=== PATIENT | male | born 1985 | race Caucasian/White ===

== ENCOUNTER 2020-10-04 12:06 | Emergency (ER) | payer SELFPAY ==
[~2020-10-04] VITALS: Ht 190 cm; Wt 140.0 kg
[2020-10-04 12:15] VITALS: BP 135/75
--- NOTE | 2020-10-04 12:40 | NUR ---
PT REPORTS HE WENT TO URGENT CARE AND THEY CAME TO THE CAR AND ASSESSED HIM AND SENT HIM TO THE ER FOR A O2 SAT OF 95%.
--- NOTE | 2020-10-04 12:56 | ED Cough/URI ---
General Chief Complaint: Cough/Cold/Flu Symptoms Stated Complaint: COVID+ Nursing Triage Note: PT WAS SENT BY URGENT CARE FOR O2 SAT OF 95% AND COVID POSITIVE. Sepsis Screen: No Definite Risk History of Present Illness Date Seen by Provider: Oct 04, 2020 Time Seen by Provider: 12:25 Initial Comments Patient is a 35-year-old male COVID positive for earlier today with 4 days of body aches, nasal congestion rhinorrhea sore throat with fever of 103 last evening chest heaviness with dry nonproductive cough for the past 3 days. Patient states symptoms gradually worsened after going deer hunting 2 days ago. He states he was in freezing weather for at least 2 hours. Denies dizziness lightheadedness, nausea vomiting, abdominal pain. Reports fatigue. No other acute symptoms or complaints. No medications or therapies prior to ED arrival. No history of asthma or chronic lung disease. Timing/Duration: just prior to arrival Severity/Quality: mild Prior Episodes/Possible Cause: occasional episodes Modifying Factors: Improves With Coughing, Improves With Rest Associated Symptoms: chest pain/soreness, cough, fever/chills, headache, muscle aches, nasal congestion, sinus infection, sore throat Allergies and Home Medications Patient Home Medication List Home Medication List Reviewed: Yes Review of Systems Review of Systems Constitutional: see HPI EENTM: see HPI Respiratory: see HPI Cardiovascular: see HPI Gastrointestinal: see HPI Genitourinary: see HPI Musculoskeletal: see HPI Skin: see HPI Psychiatric/Neurological: See HPI Hematologic/Lymphatic: See HPI Immunological/Allergic: see HPI All Other Systems Reviewed Negative Unless Noted: Yes Past Isggnez-Uvgdwb-Nlwjup Hx Past Med/Social Hx: Reviewed Nursing Past Med/Soc Hx Patient Social History Alcohol Use: Denies Use Recreational Drug Use: No Smoking Status: Never a Smoker 2nd Hand Smoke Exposure: No Recent Foreign Travel: No Contact w/Someone Who Travel: No Recent Infectious Disease Expo: No Recent Hopitalizations: No Physical Abuse: No Sexual Abuse: No Mistreated: No Fear: No Seasonal Allergies Seasonal Allergies: No Past Medical History Surgeries: Yes (left knee repair) Orthopedic Respiratory: No Cardiac: No Neurological: No Genitourinary: No Gastrointestinal: No Musculoskeletal: No Endocrine: No HEENT: No Cancer: No Psychosocial: No Blood Disorders: No Physical Exam Vital Signs - First Documented 10/04/20 12:15 Temp 36.8 Pulse 91 Resp 18 B/P (MAP) 135/75 (95) Pulse Ox 95 O2 Delivery Room Air Capillary Refill : Less Than 3 Seconds Height: '" Weight: lbs. oz. kg; 38.00 BMI Method: General Appearance: mild distress Eyes: Bilateral Eye Normal Inspection, Bilateral Eye PERRL, Bilateral Eye EOMI HEENT: PERRL/EOMI, normal ENT inspection, pharynx normal, other Neck: non-tender, full range of motion, supple Respiratory: no respiratory distress, no accessory muscle use, respiratory distress, decreased breath sounds; No stridor, No wheezing Cardiovascular: normal peripheral pulses, regular rate, rhythm Gastrointestinal: non tender Extremities: normal range of motion, non-tender Neurologic/Psychiatric: fuel handler II-XII nml as tested, no motor/sensory deficits, oriented x 3 Skin: normal color, warm/dry Progress/Results/Core Measures Suspected Sepsis Recent Fever Within 48 Hours: No Infection Criteria Present: Suspected New Infection New/Unexplained Altered Menta: No Sepsis Screen: No Definite Risk SIRS Temperature: Pulse: 91 Respiratory Rate: 18 Blood Pressure 135 /75 Mean: 95 Results/Orders My Orders Orders - JOSEFINA RIZO DO Chest 1 View Ap/Pa Only (10/04/20 12:19) Vital Signs/I&O 10/04/20 12:15 Temp 36.8 Pulse 91 Resp 18 B/P (MAP) 135/75 (95) Pulse Ox 95 O2 Delivery Room Air Capillary Refill : Less Than 3 Seconds Blood Pressure Mean: 95 Departure Communication (Admissions) Chest x-ray: Multiple groundglass infiltrates. Patient COVID positive with crabgrass opacities on chest x-ray. O2 saturations consistently greater than 95% without signs of increased work of breathing. Please on steroids antibiotics and albuterol with instructions to monitor O2 saturations at home. Return precautions reviewed. Patient verbalized understanding. Discharge instructions prior to departure. Pseudomonal Risk: No known risk Impression Primary Impression: COVID-19 Disposition: 01 HOME, SELF-CARE Condition: Stable Departure-Patient Inst. Decision time for Depature: 12:58 Patient Instructions: Coronavirus Disease 2019 (COVID-19) (DC) Add. Discharge Instructions: Please take newly prescribed medications as directed and monitor O2 saturation at home. Return to the ED if O2 saturations are persistently lower than 90% review develop other new or concerning symptoms. Continue to self or 19 until you you have been symptom free for 3 days. All discharge instructions reviewed with patient and/or family. Voiced understanding. Scripts Prednisone (Prednisone) 20 Mg Tab 40 MG PO DAILY, #6 TAB 0 Refills Prov: JOSEFINA RIZO DO 10/04/20 Albuterol Sulfate (PROAIR HFA) 1 Puff Puff 2 PUFF IH Q4H, #1 PUFF 1 PUFF = 90 MCG Prov: JOSEFINA RIZO DO 10/04/20 Azithromycin (Zithromax) 250 Mg Tablet 250 MG PO UD, #6 TAB TAKE 2 TABLETS TODAY, THEN TAKE 1 TABLET DAILY FOR 4 MORE DAYS Prov: JOSEFINA RIZO DO 10/04/20 JOSEFINA RIZO DO Oct 04, 2020 12:56
[2020-10-04] MEDS ORDERED: PRD20T PO (13:01)
[2020-10-04] MEDS ORDERED: RT-ALBUINH IH (13:01)
[2020-10-04] MEDS ORDERED: AZIT250T PO (13:01)
--- NOTE | 2020-10-04 13:13 | Diagnostic Imaging Report ---
INDICATION: Shortness of breath. TIME OF EXAM: 12:27 p.m. COMPARISON: No prior studies are available for comparison. FINDINGS: Heart size is normal. There is minimal patchy infiltrate in both bases suggestive of pneumonia. No effusion or pneumothorax is seen. IMPRESSION: Patchy bibasilar pneumonia. Dictated by: Dictated on workstation # [id number]
== END 2020-10-04 13:03 | disposition home or self-care (01) ==
LOC: ER FS 12:08
DX: U07.1 COVID-19 (principal)
CPT/HCPCS: 71045

== ENCOUNTER 2020-10-06 04:22 | Emergency (ER) | payer SELFPAY ==
[~2020-10-06] VITALS: Ht 192 cm; Wt 136.0 kg
[~2020-10-06 04:22] MED LIST: AZIT250T PO; PRD20T PO; RT-ALBUINH IH
[2020-10-06] MEDS: NS IV 1000 ML 1,000 ML IV SCH ×2 (04:56→05:36)
--- NOTE | 2020-10-06 04:56 | ED Cough/URI ---
General Chief Complaint: Respiratory Problems Stated Complaint: low 02, Covid Nursing Triage Note: Patient states he was seen in the ER for cold like symptoms on 10/04/20 after getting a positive covid swab from urgent care that same day. Patient states that he has gotten progressively worse with shortness of breath and persistent cough. Sepsis Screen: Possible Severe Sepsis Risk Source: patient Exam Limitations: no limitations History of Present Illness Date Seen by Provider: Oct 06, 2020 Time Seen by Provider: 04:40 Initial Comments 35-year-old male presents with complaint of vomiting for the last 1 day and feeling weak with full body chills starting this morning. Patient diagnosed with COVID a few days prior, seen in this ER on October 04 and a chest x-ray done showing minimal bibasilar patchy infiltrates. patient was sent home with Z-Hilton, steroids and an inhaler and has been doing okay until yesterday when he began to vomit. Now feeling dehydrated. Denies significant shortness of air except for when he walks or does light work. He is currently unemployed and lost his insurance. States that his family has all had COVID. Allergies and Home Medications Allergies Coded Allergies: codeine (Verified Allergy, Unknown, 10/06/20) iron (Verified Allergy, Unknown, 10/06/20) Home Medications Albuterol Sulfate 1 Puff Puff, 2 PUFF IH Q4H 1 PUFF = 90 MCG Prescribed by: JOSEFINA RIZO on 10/04/20 1301 Azithromycin 250 Mg Tablet, 250 MG PO UD TAKE 2 TABLETS TODAY, THEN TAKE 1 TABLET DAILY FOR 4 MORE DAYS Prescribed by: JOSEFINA RIZO on 10/04/20 1301 Hydroxychloroquine Sulfate 200 Mg Tablet, 200 MG PO BID Prescribed by: ABDIAZIZ BERKOWITZ on 10/06/20 0604 Ondansetron 4 Mg Tab.rapdis, 4 MG PO TID Prescribed by: ABDIAZIZ VALERIOSTCHRISTIAN on 10/06/20 0608 Prednisone 20 Mg Tab, 40 MG PO DAILY Prescribed by: JOSEFINA RIZO on 10/04/20 1301 Patient Home Medication List Home Medication List Reviewed: Yes Review of Systems Review of Systems Constitutional: see HPI, chills; No dizziness, No fever; malaise, weakness EENTM: no symptoms reported Respiratory: cough (RARELY); No hemoptysis; short of breath (w light exertion); No stridor, No wheezing Cardiovascular: No chest pain, No palpitations, No syncope Gastrointestinal: No abdominal pain; loss of appetite, nausea, vomiting Skin: No change in color, No rash Past Vuqqhwd-Rrpfai-Djijxw Hx Past Med/Social Hx: Reviewed Nursing Past Med/Soc Hx Patient Social History Smoking Status: Former Smoker 2nd Hand Smoke Exposure: No Recent Foreign Travel: No Contact w/Someone Who Travel: No Recent Infectious Disease Expo: Yes Recent Hopitalizations: No Seasonal Allergies Seasonal Allergies: No Past Medical History Surgeries: Yes (left knee repair) Orthopedic Respiratory: No Cardiac: No Neurological: No Genitourinary: No Gastrointestinal: No Musculoskeletal: No Endocrine: No HEENT: No Cancer: No Psychosocial: No Blood Disorders: No Physical Exam Vital Signs - First Documented 10/06/20 04:22 Temp 37.6 Pulse 117 Resp 28 B/P (MAP) 146/72 (96) Pulse Ox 86 O2 Delivery Room Air Capillary Refill : Less Than 3 Seconds Height: '" Weight: lbs. oz. kg; 36.00 BMI Method: General Appearance: WD/WN, no apparent distress HEENT: normal ENT inspection Neck: non-tender, supple Respiratory: chest non-tender, lungs clear, normal breath sounds, no respiratory distress, no accessory muscle use Cardiovascular: no JVD, tachycardia (110's) Gastrointestinal: non tender, soft; No distended, No guarding, No rebound, No tenderness Extremities: non-tender, no pedal edema, no calf tenderness Neurologic/Psychiatric: alert, normal mood/affect, oriented x 3 Skin: normal color, warm/dry Focused Exam Lactate Level 10/06/20 04:47: Lactic Acid Level 2.98*H Lactic Acid Level Laboratory Tests Test 10/06/20 04:47 Lactic Acid Level 2.98 MMOL/L (0.50-2.00) *H Progress/Results/Core Measures Suspected Sepsis Recent Fever Within 48 Hours: Yes Infection Criteria Present: Documented Infection New/Unexplained Altered Menta: No Sepsis Screen: Possible Severe Sepsis Risk SIRS Temperature: Pulse: 117 Respiratory Rate: 28 Laboratory Tests 10/06/20 04:47: White Blood Count 6.6 Blood Pressure 146 /72 Mean: 96 10/06/20 04:47: Lactic Acid Level 2.98*H Laboratory Tests 10/06/20 04:47: Creatinine 0.79, Platelet Count 193, Total Bilirubin 0.6 Results/Orders Lab Results Laboratory Tests Test 10/06/20 04:47 Range/Units White Blood Count 6.6 4.3-11.0 10^3/uL Red Blood Count 6.35 H 4.35-5.85 10^6/uL Hemoglobin 12.6 L 13.3-17.7 G/DL Hematocrit 39 L 40-54 % Mean Corpuscular Volume 62 L 80-99 FL Mean Corpuscular Hemoglobin 20 L 25-34 PG Mean Corpuscular Hemoglobin Concent 32 32-36 G/DL Red Cell Distribution Width 17.8 H 10.0-14.5 % Platelet Count 193 130-400 10^3/uL Mean Platelet Volume 10.9 H 7.4-10.4 FL Immature Granulocyte % (Auto) 0 % Neutrophils (%) (Auto) 70 42-75 % Lymphocytes (%) (Auto) 20 12-44 % Monocytes (%) (Auto) 10 0-12 % Eosinophils (%) (Auto) 0 0-10 % Basophils (%) (Auto) 0 0-10 % Neutrophils # (Auto) 4.7 1.8-7.8 X 10^3 Lymphocytes # (Auto) 1.3 1.0-4.0 X 10^3 Monocytes # (Auto) 0.6 0.0-1.0 X 10^3 Eosinophils # (Auto) 0.0 0.0-0.3 10^3/uL Basophils # (Auto) 0.0 0.0-0.1 10^3/uL Immature Granulocyte # (Auto) 0.0 0.0-0.1 10^3/uL Sodium Level 137 135-145 MMOL/L Potassium Level 4.2 3.6-5.0 MMOL/L Chloride Level 103 98-107 MMOL/L Carbon Dioxide Level 20 L 21-32 MMOL/L Anion Gap 14 5-14 MMOL/L Blood Urea Nitrogen 12 7-18 MG/DL Creatinine 0.79 0.60-1.30 MG/DL Estimat Glomerular Filtration Rate > 60 BUN/Creatinine Ratio 15 Glucose Level 124 H 70-105 MG/DL Lactic Acid Level 2.98 *H 0.50-2.00 MMOL/L Calcium Level 8.5 8.5-10.1 MG/DL Corrected Calcium 8.4 L 8.5-10.1 MG/DL Total Bilirubin 0.6 0.1-1.0 MG/DL Aspartate Amino Transf (AST/SGOT) 24 5-34 U/L Alanine Aminotransferase (ALT/SGPT) 25 0-55 U/L Alkaline Phosphatase 71 40-136 U/L C-Reactive Protein 6.94 H <0.50 MG/DL Total Protein 6.8 6.4-8.2 GM/DL Albumin 4.1 3.2-4.5 GM/DL My Orders Orders - ABDIAZIZ BERKOWITZ DO Covid-19 External Lab Results (10/06/20 04:33) Ed Iv/Invasive Line Start (10/06/20 04:46) Cbc With Automated Diff (10/06/20 04:46) Comprehensive Metabolic Panel (10/06/20 04:46) Lactic Acid Analyzer (10/06/20 04:46) Chest 1 View Ap/Pa Only (10/06/20 04:46) Ns Iv 1000 Ml (Sodium Chloride 0.9%) (10/06/20 05:00) Dexamethasone Injection (Decadron Inje (10/06/20 05:00) Ondansetron Injection (Zofran Injectio (10/06/20 05:00) Albuterol/Ipra Inhalation Soln (Duoneb I (10/06/20 05:00) Svn Small Volume Nebulizer (10/06/20 04:46) Procalcitonin (Pct) (10/06/20 05:18) Crp Fs (10/06/20 05:18) Medications Given in ED Current Medications Medications Dose Ordered Sig/Parvez Route Start Time Stop Time Status Last Admin Dose Admin Albuterol/ Ipratropium 3 ml ONCE ONCE INH 10/06/20 05:00 10/06/20 05:01 DC 10/06/20 04:59 3 ML Dexamethasone Sodium Phosphate 8 mg ONCE ONCE IV 10/06/20 05:00 10/06/20 05:01 DC 10/06/20 04:58 8 MG Ondansetron HCl 4 mg ONCE ONCE IVP 10/06/20 05:00 10/06/20 05:01 DC 10/06/20 04:57 4 MG Vital Signs/I&O 10/06/20 10/06/20 04:22 06:14 Temp 37.6 Pulse 117 98 Resp 28 26 B/P (MAP) 146/72 (96) 132/80 Pulse Ox 86 92 O2 Delivery Room Air Room Air Capillary Refill : Less Than 3 Seconds Blood Pressure Mean: 96 Progress Note : Progress Note Patient responded well to 2 liters of NS, lowering HR below 100. Maintained oxygen sats > 93% on RA. NO respiratory distress. At this time, doesn't need hospitalization and likely will do well to recover through this illness at home. Advised to follow up if worsening condition. Rx written for Hyd roxychloroquine and advised pt to fill in [place] pharmacy as the state if [place] will not fill it. The risk/ benefit was explained to patient in detail. Nothing more to add to his outpatient regimen. already taking an aspirin, Vit C, zinc daily. Diagnostic Imaging Diagonstic Imaging: Xray Plain Films/CT/US/NM/MRI: chest Comments CXR w similar appearance to 10/04 w bibasilar patchy infiltrates and interval marva nge of LLL increased density. Reviewed: Reviewed by Me Departure Impression Primary Impression: Nausea & vomiting Qualified Codes: R11.2 - Nausea with vomiting, unspecified Additional Impressions: Dehydration Pneumonia due to COVID-19 virus Disposition: HOME, SELF-CARE Condition: Improved Departure-Patient Inst. Decision time for Depature: 06:03 Referrals: [facility]/LUIS ENRIQUE (PCP) Primary Care Physician JE ALFARO APRN (Family) Primary Care Physician Patient Instructions: Nausea and Vomiting, Adult (DC), Coronavirus Disease 2019 (COVID-19) Overview Add. Discharge Instructions: Call your PCP with any further questions regarding your illness this week. Return to the ER if you feel you are becoming worse: increasing shortness of air, chest pain and tightness or increased weakness. Continue taking your Zinc supplements and aspirin for at least another couple weeks. You will need to fill the prescription for Hydroxychloroquine at a pharmacy in [place] due to unwarranted [place] Government restrictions on prescribing this medication All discharge instructions reviewed with patient and/or family. Voiced understanding. Scripts Ondansetron (Ondansetron Odt) 4 Mg Tab.rapdis 4 MG PO TID for Nausea, #12 TAB Prov: ABDIAZIZ BERKOWITZ DO 10/06/20 Hydroxychloroquine Sulfate (Hydroxychloroquine Sulfate) 200 Mg Tablet 200 MG PO BID, #14 TAB Prov: ABDIAZIZ BERKOWITZ DO 10/06/20 ABDIAZIZ BERKOWITZ DO Oct 06, 2020 04:56
[2020-10-06] MEDS ORDERED: RT-ALBUTEROL/IPRATROPIUM 3 ML (DUONEB) VIAL INH ONE (05:00)
[2020-10-06] MEDS ORDERED: ONDANSETRON 4 MG/2 ML (SDV) Z0FRAN IVP ONE (05:00)
[2020-10-06 05:33] LABS: BASOPHILS % (AUTO) 0 % (0-10); EOSINOPHILS % (AUTO) 0 % (0-10); HEMATOCRIT 39 % (40-54); HEMOGLOBIN 12.6 G/DL (13.3-17.7); LYMPHOCYTES % (AUTO) 20 % (12-44); MEAN CORPUSCULAR HEMOGLOBIN 20 PG (25-34); MEAN CORPUSCULAR HGB CONC 32 G/DL (32-36); MEAN PLATELET VOLUME 10.9 FL (7.4-10.4); MONOCYTES % (AUTO) 10 % (0-12); NEUTROPHILS % (AUTO) 70 % (42-75); PLATELET COUNT 193 10^3/uL (130-400); WHITE BLOOD COUNT 6.6 10^3/uL (4.3-11.0)
[2020-10-06 05:34] LABS: LYMPHOCYTES # (AUTO) 1.3 X 10^3 (1.0-4.0); MONOCYTES # (AUTO) 0.6 X 10^3 (0.0-1.0); NEUTROPHILS # (AUTO) 4.7 X 10^3 (1.8-7.8)
[2020-10-06 05:35] LABS: MEAN CORPUSCULAR VOLUME 62 FL (80-99)
[2020-10-06 05:41] LABS: BUN/CREATININE RATIO 15; CARBON DIOXIDE 20 MMOL/L (21-32); CHLORIDE 103 MMOL/L (98-107); CREATININE SERUM 0.79 MG/DL (0.60-1.30); GFR ESTIMATED > 60; GLUCOSE 124 MG/DL (70-105); POTASSIUM 4.2 MMOL/L (3.6-5.0); SODIUM 137 MMOL/L (135-145)
[2020-10-06 05:42] LABS: ALANINE AMINOTRANSFERASE 25 U/L (0-55); ALBUMIN 4.1 GM/DL (3.2-4.5); ALKALINE PHOSPHATASE 71 U/L (40-136); BILIRUBIN,TOTAL 0.6 MG/DL (0.1-1.0); CALCIUM 8.5 MG/DL (8.5-10.1); TOTAL PROTEIN 6.8 GM/DL (6.4-8.2)
[2020-10-06] MEDS ORDERED: HYDR200T46 PO (06:04)
[2020-10-06] MEDS ORDERED: ONDA4TAB11 PO (06:08)
[2020-10-06 06:14] VITALS: BP 132/80
--- NOTE | 2020-10-06 06:15 | Diagnostic Imaging Report ---
CHEST 1 VIEW AP/PA ONLY INDICATION: Hypoxia, Covid positive. COMPARISON: 10/04/2020 FINDINGS: Mild progression of bibasilar patchy consolidations. No pleural effusion or pneumothorax. Normal cardiomediastinal silhouette. IMPRESSION: 1. Progression of basilar pulmonary opacities which could be on the basis of patient's Covid-19 pneumonia. Dictated by: Dictated on workstation # [id number]
== END 2020-10-06 06:14 | disposition home or self-care (01) ==
LOC: EDUNIT# 04:22 → ER FS 04:26
DX: R11.2 Nausea with vomiting, unspecified (principal); E86.0 Dehydration; U07.1 COVID-19; J12.89 Other viral pneumonia; Z87.891 Personal history of nicotine dependence; Z88.5 Allergy status to narcotic agent; Z79.52 Long term (current) use of systemic steroids
CPT/HCPCS: 36415; 71045; 80053; 83605; 84145; 85025; 86141

== ENCOUNTER 2022-09-15 17:06 | Emergency (ER) | payer OTHER, BC ==
[~2022-09-15] VITALS: Ht 187.9 cm; Wt 122.0 kg
[~2022-09-15 17:06] MED LIST changes: +ALBU8.5H6 IH; +HYDR200T46 PO; +ONDA4TAB11 PO; -RT-ALBUINH IH
[2022-09-15] MEDS ORDERED: ONDANSETRON 4 MG/2 ML (SDV) Z0FRAN IVP ONE (17:30)
[2022-09-15] MEDS ORDERED: fentaNYL INJ 100 MCG/2 ML AMP IVP ONE (17:30)
[2022-09-15 17:31] LABS: HEMATOCRIT 37 % (40-54); MEAN CORPUSCULAR HEMOGLOBIN 20 pg (25-34); MEAN CORPUSCULAR HGB CONC 33 g/dL (32-36); MEAN CORPUSCULAR VOLUME 62 fL (80-99); MEAN PLATELET VOLUME 9.9 fL (9.0-12.2); PLATELET COUNT 276 10^3/uL (130-400); WHITE BLOOD COUNT 5.2 10^3/uL (4.3-11.0)
[2022-09-15 17:59] LABS: ALANINE AMINOTRANSFERASE 28 U/L (0-55); ALKALINE PHOSPHATASE 92 U/L (40-136); BILIRUBIN,TOTAL 0.9 MG/DL (0.1-1.0); BUN/CREATININE RATIO 13; CALCIUM 9.3 MG/DL (8.5-10.1); CARBON DIOXIDE 22 MMOL/L (21-32); CHLORIDE 109 MMOL/L (98-107); CREATININE SERUM 0.83 MG/DL (0.60-1.30); GFR ESTIMATED 117; GLUCOSE 96 MG/DL (70-105); TOTAL PROTEIN 7.6 GM/DL (6.4-8.2)
[2022-09-15 18:13] LABS: POTASSIUM 3.9 MMOL/L (3.6-5.0); SODIUM 142 MMOL/L (135-145)
[2022-09-15] MEDS ORDERED: HOLD METFORMIN - RECEIVED CONTRAST 20 ML VIAL IV SCH (18:15)
[2022-09-15] MEDS ORDERED: NS 100 ML (IVPB) BAG IV ONE ×2 (18:15→18:30)
[2022-09-15] MEDS ORDERED: IOHEXOL 350 MG/ML 100 ML (OMNIPAQUE 350) VIAL IV ONE ×2 (18:15→18:30)
--- NOTE | 2022-09-15 18:39 | Diagnostic Imaging Report ---
EXAMINATION: CT cervical spine without contrast. TECHNIQUE: Multiple contiguous axial images were obtained through the cervical spine without the use of intravenous contrast. Sagittal and coronal reformations through the cervical spine were then performed. All CT scans use one or more of the following dose optimizing techniques: automated exposure control, MA and/or KvP adjustment based on patient size and exam type or iterative reconstruction. HISTORY: Neck pain after injury COMPARISON: None available. FINDINGS: Vertebral body height and alignment are preserved. No acute fracture, dislocation, or destructive osseous process. No significant facet hypertrophy. No significant central canal or neuroforaminal stenosis. The paraspinous soft tissues are normal. The visualized thyroid gland is normal. The visualized lung apices are normal. IMPRESSION: 1. No cervical spine fracture. Dictated by: Dictated on workstation # [id number]
--- NOTE | 2022-09-15 18:40 | Diagnostic Imaging Report ---
EXAMINATION: CT chest, abdomen and pelvis with intravenous contrast. TECHNIQUE: Multiple contiguous axial images were obtained through the chest, abdomen and pelvis after the uneventful administration of intravenous contrast. All CT scans use one or more of the following dose optimizing techniques: automated exposure control, MA and/or KvP adjustment based on patient size and exam type or iterative reconstruction. HISTORY: Chest and abdominal pain after injury. COMPARISON: None available. FINDINGS: Thyroid: The visualized thyroid gland is normal. Mediastinum: Heart size is normal without significant pericardial effusion. The aorta is normal in caliber. No suspicious lymphadenopathy. Lungs and airways: The lungs are clear without consolidation, pleural effusion, or pneumothorax. The airways are normal. Solid organs: The liver is normal without focal lesion. The gallbladder is normal. There is no biliary ductal dilation. Pancreas is normal. Spleen is normal. Adrenal glands are normal. There is a right renal cyst which requires no follow-up. Additional subcentimeter left renal cortical hypodensities are too small for accurate characterization and require no follow-up. There is no hydronephrosis. Bowel: The stomach and small bowel are normal without obstruction. The colon and appendix are normal. Peritoneum: There is no intraperitoneal free fluid or free air. No suspicious lymphadenopathy. Vasculature: Normal without aneurysm. Musculoskeletal: Redemonstrated L1 compression fracture. Degenerative changes of the thoracolumbar spine without suspicious osseous lesion or other acute fracture. Pelvis: The prostate gland is normal. The urinary bladder is normal. IMPRESSION: 1. Age-indeterminate L1 compression fracture. 2. No other acute abnormality in the chest, abdomen or pelvis. Dictated by: Dictated on workstation # [id number]
--- NOTE | 2022-09-15 18:42 | Diagnostic Imaging Report ---
EXAMINATION: CT thoracic and lumbar spine without contrast. TECHNIQUE: Multiple contiguous axial images were obtained through the thoracic and lumbar spine without the use of intravenous contrast. Sagittal and coronal reformations were then performed. All CT scans use one or more of the following dose optimizing techniques: automated exposure control, MA and/or KvP adjustment based on patient size and exam type or iterative reconstruction. HISTORY: Back pain after injury COMPARISON: None available. FINDINGS: There is exaggerated thoracic kyphosis with multilevel thoracic spondylosis which is advanced for patient's age. There is a compression fracture of the L1 vertebral body with 60% loss of height. There is mild multilevel facet hypertrophy. Disk heights are normal. There is no spinal canal stenosis. Limited views of the soft tissues show no abnormality. The aorta is normal. IMPRESSION: 1. Age-indeterminate compression fracture of L1 vertebral body. 2. No other acute fracture seen within the thoracic and lumbar spine. 3. Advanced degenerative changes throughout the thoracolumbar spine which is disproportionate to patient's age. Dictated by: Dictated on workstation # [id number]
--- NOTE | 2022-09-15 19:11 | Diagnostic Imaging Report ---
CLINICAL HISTORY: Right arm pain. Fall. COMPARISON: None. TECHNIQUE: 2 views of the right humerus. FINDINGS: There is no acute fracture or dislocation of the right humerus. Alignment is anatomic. The imaged joint spaces are preserved. No suspicious focal osseous lesion. IMPRESSION: No acute fracture or dislocation in the right humerus. Dictated by: Dictated on workstation # [id number]
[2022-09-15] MEDS ORDERED: KETOROLAC 30 MG/ML VIAL IVP ONE (20:00)
[2022-09-15 20:05] VITALS: BP 146/83
--- NOTE | 2022-09-15 20:10 | ED Trauma-Multisystem ---
General Chief Complaint: Trauma-Non Activation Stated Complaint: WC,R SHOULDER,ARM PAIN Nursing Triage Note: Patient c/o Rt. anterior rib cage, Rt. side Abd., Rt. upper Arm, and Rt. scapula pain after a roll of rubber stock fell with hitting patient. Pt. states the rubber stock fell aprox. 3-4 Ft. and weighs aprox. 4-500 pds. Pt. denies LOC after incident. Pt. denies any head or neck pain. Pt. has non-bleeding abrasion with swelling to Rt. scapula and red amy to Rt. upper arm. Pt. is alert and oriented x 3. Pt. ambulated into ER overflow room. Pt. c/o nausea, but denies any vomiting. Pt. states his tetanus shot is less than 5 yrs. Pt. c/o tingling to RUE. Source of Information: Patient Exam Limitations: No Limitations History of Present Illness Date Seen by Provider: Sep 15, 2022 Time Seen by Provider: 17:08 Initial Comments This 36-year-old gentleman presents to the emergency room with a workplace injury in which a large roll of rubber on a metal spool dropped from its harness and struck him on the posterior right upper back/shoulder. He has obvious injur y with contusion and abrasion in this area. He denies head injury, neck pain, or loss of consciousness. On exam he is found to have some right lower chest and right upper quadrant abdominal tenderness. He is experiencing some nausea as well. Patient reports jumping about 8 feet off of the machine in an attempt to get out of the way. Allergies and Home Medications Allergies Coded Allergies: codeine (Verified Allergy, Unknown, 10/06/20) iron (Verified Allergy, Unknown, 10/06/20) Patient Home Medication List Home Medication List Reviewed: Yes Albuterol Sulfate (Ventolin Hfa) 1 Puff Puff, 2 PUFF IH Q4H Prescribed by: JOSEFINA RIZO on 10/04/20 1301 Azithromycin (Zithromax) 250 Mg Tablet, 250 MG PO UD Prescribed by: JOSEFINA RIZO on 10/04/20 1301 Hydroxychloroquine Sulfate (Hydroxychloroquine Sulfate) 200 Mg Tablet, 200 MG PO BID Prescribed by: ABDIAZIZ BERKOWITZ on 10/06/20 0604 Ondansetron (Ondansetron Odt) 4 Mg Tab.rapdis, 4 MG PO TID Prescribed by: ABDIAZIZ BERKOWITZ on 10/06/20 0608 Prednisone (Prednisone) 20 Mg Tab, 40 MG PO DAILY Prescribed by: JOSEFINA RIZO on 10/04/20 1301 Review of Systems Review of Systems Constitutional: no symptoms reported Eyes: No Symptoms Reported Ears: No Symptoms Reported Nose: No Symptoms Reported Mouth: No Symptoms Reported Throat: No Symptoms to Report Respiratory: see HPI Cardiovascular: No Symptoms Reported Gastrointestinal: see HPI Genitourinary: no symptoms reported Musculoskeletal: see HPI Skin: see HPI Psychiatric/Neurological: No Symptoms Reported Past Rxstsmo-Ngjtfe-Aysmkj Hx Patient Social History Tobacco Use?: No Smokeless Tobacco Frequency: Current Everyday User Use of E-Cig and/or Vaping dev: No Substance use?: No Alcohol Use?: No Pt feels they are or have been: No Immunizations Up To Date Influenza Vaccine Up-to-Date: Yes; Up-to-Date Seasonal Allergies Seasonal Allergies: No Past Medical History Surgery/Hospitalization HX: Seizure Hx. Surgeries: Yes (left knee repair) Orthopedic Respiratory: No Cardiac: No Neurological: Yes Seizure Disorder Genitourinary: No Gastrointestinal: No Musculoskeletal: No Endocrine: No HEENT: No Cancer: No Psychosocial: No Integumentary: No Blood Disorders: Yes (Thalassemia minor) Physical Exam Vital Signs Vital Signs - First Documented 09/15/22 17:09 Temp 36.7 Pulse 84 Resp 18 B/P (MAP) 137/74 (95) Pulse Ox 98 O2 Delivery Room Air Height, Weight, BMI Height: '" Weight: lbs. oz. kg; 34.00 BMI Method: General Appearance: WD/WN, Mild Distress Head: No Evidence of Injury Ears, Nose, Throat: Hearing Grossly Normal, No Evidence of ENT Injury Neck: Normal Inspection, Non Tender Cardiovascular: Regular Rate, Rhythm, No Edema, No Murmur Respiratory: Lungs Clear, Normal Breath Sounds, No Accessory Muscle Use, No Respiratory Distress, Other (Right lower anterior chest wall tender to palpation without visible injury) Gastrointestinal: Soft; No Distended; Tenderness (Right upper quadrant) Back: Other (Abrasion, contusion, swelling, and tenderness of the right upper back over lying the inferior trapezius region and extending over the right superior scapula. Pain with range of motion of the right shoulder) Extremity: No Pedal Edema, Other (Skin induration and erythema suggestive of contusion on the anterior right upper arm. No joint tenderness or pain with range of motion in the right upper extremity. 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 Skin: Normal Color, Warm/Dry, Other (Abrasions/contusions as above) Adriana Coma Score Best Eye Response (Adriana): (4) Open Spontaneously Best Verbal Response (Adriana): (5) Oriented Best Motor Response (Adriana): (6) Obeys Commands [place] Total: 15 Progress/Results/Core Measures Results/Orders Lab Results Laboratory Tests Test 09/15/22 17:27 Range/Units White Blood Count 5.2 4.3-11.0 10^3/uL Red Blood Count 5.92 H 4.30-5.52 10^6/uL Hemoglobin 12.0 L 13.3-17.7 g/dL Hematocrit 37 L 40-54 % Mean Corpuscular Volume 62 L 80-99 fL Mean Corpuscular Hemoglobin 20 L 25-34 pg Mean Corpuscular Hemoglobin Concent 33 32-36 g/dL Red Cell Distribution Width 17.2 H 10.0-14.5 % Platelet Count 276 130-400 10^3/uL Mean Platelet Volume 9.9 9.0-12.2 fL Sodium Level 142 135-145 MMOL/L Potassium Level 3.9 3.6-5.0 MMOL/L Chloride Level 109 H 98-107 MMOL/L Carbon Dioxide Level 22 21-32 MMOL/L Anion Gap 11 5-14 MMOL/L Blood Urea Nitrogen 11 7-18 MG/DL Creatinine 0.83 0.60-1.30 MG/DL Estimat Glomerular Filtration Rate 117 BUN/Creatinine Ratio 13 Glucose Level 96 70-105 MG/DL Calcium Level 9.3 8.5-10.1 MG/DL Corrected Calcium 8.5-10.1 MG/DL Total Bilirubin 0.9 0.1-1.0 MG/DL Aspartate Amino Transf (AST/SGOT) 20 5-34 U/L Alanine Aminotransferase (ALT/SGPT) 28 0-55 U/L Alkaline Phosphatase 92 40-136 U/L Total Protein 7.6 6.4-8.2 GM/DL Albumin 5.0 H 3.2-4.5 GM/DL Serum Alcohol < 10 <10 MG/DL My Orders Orders - LA[facility] VENEGAS MD Ed Iv/Invasive Line Start (09/15/22 17:21) Ondansetron Injection (Zofran Injectio (09/15/22 17:30) Fentanyl Inj (Sublimaze Injection) (09/15/22 17:30) Cbc No Diff (09/15/22:23) Alcohol (09/15/22 17:23) Monitor-Rhythm Ecg Trace Only (09/15/22 17:23) Comprehensive Metabolic Panel (09/15/22:23) Ua Culture If Indicated (09/15/22 17:23) Ct Chest/Abdomen/Pelvis W (09/15/22 17:23) Humerus 2 View Right (09/15/22 17:23) Ct Thoracic/Lumbar Spine Wo (09/15/22 17:58) Ct Cervical Spine Wo (09/15/22 17:58) Iohexol Injection (Omnipaque 350 Mg/Ml 1 (09/15/22 18:15) Received Contrast (Hold Metformin- Contr (09/15/22 18:15) Ns (Ivpb) (Sodium Chloride 0.9% Ivpb Bag (09/15/22 18:15) Iohexol Injection (Omnipaque 350 Mg/Ml 1 (09/15/22 18:30) Ns (Ivpb) (Sodium Chloride 0.9% Ivpb Bag (09/15/22 18:30) Ketorolac Injection (Toradol Injection) (09/15/22 20:00) Medications Given in ED Current Medications Medications Dose Ordered Sig/Parvez Route Start Time Stop Time Status Last Admin Dose Admin Fentanyl Citrate 75 mcg ONCE ONCE IVP 09/15/22 17:30 09/15/22 17:31 DC 09/15/22 17:35 75 MCG Iohexol 100 ml ONCE ONCE IV 09/15/22 18:15 09/15/22 18:20 DC 09/15/22 18:16 100 ML Ketorolac Tromethamine 30 mg ONCE ONCE IVP 09/15/22 20:00 09/15/22 20:01 DC 09/15/22 19:53 30 MG Ondansetron HCl 8 mg ONCE ONCE IVP 09/15/22 17:30 09/15/22 17:31 DC 09/15/22 17:34 8 MG Sodium Chloride 100 ml ONCE ONCE IV 09/15/22 18:15 09/15/22 18:16 DC 09/15/22 18:18 100 ML Vital Signs/I&O 09/15/22 09/15/22 09/15/22 17:09 19:00 20:05 Temp 36.7 Pulse 84 84 60 Resp 18 18 16 B/P (MAP) 137/74 (95) 137/74 (95) 146/83 Pulse Ox 98 98 98 O2 Delivery Room Air Room Air Blood Pressure Mean: 104 Progress Progress Note : Progress Note Patient's symptoms were treated with fentanyl and Zofran. CT imaging was obtained due to the nature of the injuries and the weight of the object involved. CTs revealed no serious injuries. Pain was further treated with Toradol. Occupational health paperwork was completed. Compression fracture at L1 was noted. Age was indeterminate. Patient had no focal pain or point tenderness in this region. That finding was therefore felt to be related to his prior back injury. Diagnostic Imaging Diagonstic Imaging: CT Plain Films/CT/US/NM/MRI: chest, abdomen, pelvis Comments NAME: LAKE WHITMAN MED REC#: [id number] PT STATUS: REG ER : 1985 PHYSICIAN: LAKE VENEGAS MD ADMIT DATE: 09/15/22/ER FS Signed Date of Exam:09/15/22 CT CHEST/ABDOMEN/PELVIS W EXAMINATION: CT chest, abdomen and pelvis with intravenous contrast. TECHNIQUE: Multiple contiguous axial images were obtained through the chest, abdomen and pelvis after the uneventful administration of intravenous contrast. All CT scans use one or more of the following dose optimizing techniques: automated exposure control, MA and/or KvP adjustment based on patient size and exam type or iterative reconstruction. HISTORY: Chest and abdominal pain after injury. COMPARISON: None available. FINDINGS: Thyroid: The visualized thyroid gland is normal. Mediastinum: Heart size is normal without significant pericardial effusion. The aorta is normal in caliber. No suspicious lymphadenopathy. Lungs and airways: The lungs are clear without consolidation, pleural effusion, or pneumothorax. The airways are normal. Solid organs: The liver is normal without focal lesion. The gallbladder is normal. There is no biliary ductal dilation. Pancreas is normal. Spleen is normal. Adrenal glands are normal. There is a right renal cyst which requires no follow-up. Additional subcentimeter left renal cortical hypodensities are too small for accurate characterization and require no follow-up. There is no hydronephrosis. Bowel: The stomach and small bowel are normal without obstruction. The colon and appendix are normal. Peritoneum: There is no intraperitoneal free fluid or free air. No suspicious lymphadenopathy. Vasculature: Normal without aneurysm. Musculoskeletal: Redemonstrated L1 compression fracture. Degenerative changes of the thoracolumbar spine without suspicious osseous lesion or other acute fracture. Pelvis: The prostate gland is normal. The urinary bladder is normal. IMPRESSION: 1. Age-indeterminate L1 compression fracture. 2. No other acute abnormality in the chest, abdomen or pelvis. Dictated by: Dictated on workstation # [id number] Dict: 09/15/221832 Trans: 09/15/221846 [id number] Interpreted by: YANA CALABRESE DO Electronically signed by: YANA CALABRESE DO 09/15/221846 Reviewed: Reviewed by Mn Diagonstic Imaging: Xray Plain Films/CT/US/NM/MRI: other (Right humerus) Comments NAME: LA[facility] WHITMAN MED REC#: [id number] PT STATUS: REG ER : 1985 PHYSICIAN: LAKE VENEGAS MD ADMIT DATE: 09/15/22/ER FS Signed Date of Exam:09/15/22 HUMERUS 2 VIEW RIGHT CLINICAL HISTORY: Right arm pain. Fall. COMPARISON: None. TECHNIQUE: 2 views of the right humerus. FINDINGS: There is no acute fracture or dislocation of the right humerus. Alignment is anatomic. The imaged joint spaces are preserved. No suspicious focal osseous lesion. IMPRESSION: No acute fracture or dislocation in the right humerus. Dictated by: Dictated on workstation # [id number] Dict: 09/15/221907 Trans: 09/15/221912 [id number] Interpreted by: DEREK HAWTHORNE DO Electronically signed by: DEREK HAWTHORNE DO 09/15/221912 Diagonstic Imaging: CT Plain Films/CT/US/NM/MRI: other (Complete spine) Comments NAME: LAKE WHITMAN [facility] REC#: [id number] PT STATUS: REG ER : 1985 PHYSICIAN: LAKE VENEGAS MD ADMIT DATE: 09/15/22/ER FS Signed Date of Exam:09/15/22 CT CERVICAL SPINE WO EXAMINATION: CT cervical spine without contrast. TECHNIQUE: Multiple contiguous axial images were obtained through the cervical spine without the use of intravenous contrast. Sagittal and coronal reformations through the cervical spine were then performed. All CT scans use one or more of the following dose optimizing techniques: automated exposure control, MA and/or KvP adjustment based on patient size and exam type or iterative reconstruction. HISTORY: Neck pain after injury COMPARISON: None available. FINDINGS: Vertebral body height and alignment are preserved. No acute fracture, dislocation, or destructive osseous process. No significant facet hypertrophy. No significant central canal or neuroforaminal stenosis. The paraspinous soft tissues are normal. The visualized thyroid gland is normal. The visualized lung apices are normal. IMPRESSION: 1. No cervical spine fracture. Dictated by: Dictated on workstation # [id number] Dict: 09/15/221828 Trans: 09/15/221846 [facility] [id number] Interpreted by: YANA CALABRESE DO Electronically signed by: YANA CALABRESE DO 09/15/221846 NAME: LAKE WHITMAN [facility] REC#: [id number] PT STATUS: REG ER : 1985 PHYSICIAN: LAKE VENEGAS MD ADMIT DATE: 09/15/22/ER FS Signed Date of Exam:09/15/22 CT THORACIC/LUMBAR SPINE WO EXAMINATION: CT thoracic and lumbar spine without contrast. TECHNIQUE: Multiple contiguous axial images were obtained through the thoracic and lumbar spine without the use of intravenous contrast. Sagittal and coronal reformations were then performed. All CT scans use one or more of the following dose optimizing techniques: automated exposure control, MA and/or KvP adjustment based on patient size and exam type or iterative reconstruction. HISTORY: Back pain after injury COMPARISON: None available. FINDINGS: There is exaggerated thoracic kyphosis with multilevel thoracic spondylosis which is advanced for patient's age. There is a compression fracture of the L1 vertebral body with 60% loss of height. There is mild multilevel facet hypertrophy. Disk heights are normal. There is no spinal canal stenosis. Limited views of the soft tissues show no abnormality. The aorta is normal. IMPRESSION: 1. Age-indeterminate compression fracture of L1 vertebral body. 2. No other acute fracture seen within the thoracic and lumbar spine. 3. Advanced degenerative changes throughout the thoracolumbar spine which is disproportionate to patient's age. Dictated by: Dictated on workstation # [id number] Dict: 09/15/221829 Trans: 09/15/221846 [facility] [id number] Interpreted by: YANA CALABRESE DO Electronically signed by: YANA CALABRESE DO 09/15/221846 Departure Impression Primary Impression: Contusion of upper back Qualified Codes: S20.221A - Contusion of right back wall of thorax, initial encounter Additional Impressions: Contusion, chest wall Qualified Codes: S20.211A - Contusion of right front wall of thorax, initial encounter Contusion of right arm Qualified Codes: S40.021A - Contusion of right upper arm, initial encounter Disposition: 01 HOME, SELF-CARE Condition: Improved Departure-Patient Inst. Decision time for Depature: 20:08 Referrals: [facility]/LUIS ENRIQUE (PCP) Primary Care Physician JE ALFARO APRN (Family) Primary Care Physician Patient Instructions: Contusion (DC) Add. Discharge Instructions: Drink plenty of clear liquids to stay well-hydrated. You may take ibuprofen up to 600 mg every 6 hours as needed starting after 2 AM. You may additionally take Tylenol (acetaminophen) up to 1000 mg every 6 hours as needed. Ice affected areas in 20-minute intervals for the first day or two. After that gentle heat may help relax tense muscles. Gradually increase level of activity as pain allows. Return to care if you have worsening symptoms despite following these instructions. Contact occupational health for follow-up instructions as they may request that you have a follow-up exam. Call with questions or concerns. All discharge instructions reviewed with patient and/or family. Voiced understanding. Copy Copies To 1: [facility]/LAKE LEE MD Sep 15, 2022 20:10
== END 2022-09-15 20:16 | disposition home or self-care (01) ==
LOC: EDUNIT# 17:06 → ER FS 17:07
DX: S20.221A Contusion of right back wall of thorax, initial encounter (principal); S40.021A Contusion of right upper arm, initial encounter; S20.211A Contusion of right front wall of thorax, initial encounter; M48.56XA Collapsed vertebra, not elsewhere classified, lumbar region, initial encounter for fracture; F17.220 Nicotine dependence, chewing tobacco, uncomplicated; Z28.310 Unvaccinated for COVID-19; W20.8XXA Other cause of strike by thrown, projected or falling object, initial encounter; Y92.69 Other specified industrial and construction area as the place of occurrence of the external cause; Y99.0 Civilian activity done for income or pay
CPT/HCPCS: 36415; 71260; 72125; 72128; 72131; 73060; 74177; 80053; 85027; 93041; 99283; G0480; 80320; Q9967